=== PATIENT | female | born 1950 | race Caucasian/White ===

== ENCOUNTER → 2017-05-09 | Outpatient (CLI) | payer MEDICARE, OTHER ==
[~2017-05-09] MED LIST: ANTI-DIARRHEAL2 M1 PO; CELEXA20 MG PO; CYCLOBENZAPRINE5 MG PO; DITROPAN5 MG PO; GABAPENTIN100 M1 PO; LORAZEPAM1 MG PO; OMEPRAZOLE40 MG PO; ZOLOFT PO
--- NOTE | ~2017-05-09 | MY29 ---
[facility] A Service of [facility] & [facility] RADIOLOGY TEXT RESULTS PATIENT: JUANCARLOS KNAPP LOCATION: [facility] : 48 UNIT #: [id number] AGE: [address]: Rai Poe MD SEX: F ORDER DR: [id number] [facility]. [place], [place] [address] [id number] O MR#: [id number] Acc #: [id number] NAME: JUANCARLOS KNAPP. : 1950 SEX: F STUDY DATE/TIME: 05/09/2017 14:44 UNIT: [facility] ROOM: STUDY DESCRIPTION: [facility] SCREENING W/ CAD BILAT Attending Physician: Rai Poe Jr., M.D. Referring Physician: Rai Poe Jr., M.D. Ordering Physician: Rai Poe Jr., M.D. Primary Care Physician: Rai Poe Jr., M.D. MEDICAL IMAGING REPORT This report is preliminary unless electronic signature is present REVISED REPORT SEE ADDENDUM EXAM Bilateral digital screening mammogram with CAD. DATE 05/09/2017 HISTORY Family history of breast cancer in mother at the age of 52. No personal history of breast cancer or current complaints. COMPARISON No previous examination at this institution for comparison. The patient states that she has had previous mammograms performed at doctor's office and mobile labs and other hospital's, exact location and dates of which are not submitted at the time this interpretation. FINDINGS CC and MLO views were obtained of each breast utilizing digital technique and reviewed with an FDA-approved CAD device. Scattered fibroglandular densities are present bilaterally, greatest in the upper outer right breast. No focal suspicious nodule, architectural distortion, or clustered microcalcification is seen. IMPRESSION BIRADS 0. Outside imaging comparison required. There are no features suspicious for malignancy on today's screening mammogram. An addendum will be placed upon this report with any additional findings and recommendations at time of comparison with outside study. Patients over the age of 40 are entered into a reminder system with target [facility] A Service of [facility] & [facility] RADIOLOGY TEXT RESULTS PATIENT: [facility]UANCARLOS KNAPP [id number] [birth year] UNIT #: [id number] AGE: [address]: Rai Poe MD SEX: F ORDER DR: due date for the next mammogram. A result letter will also be sent to the patient. BIRADS: 0 Incomplete; need additional imaging evaluation and/or prior mammograms for comparison. Dictated by... Jenny Rayo M.D. THIS IS AN ELECTRONICALLY VERIFIED REPORT Jenny Rayo M.D. at 05/10/2017 7:12 AM [facility]/omero TD: 05/09/2017 16:13 JOB #: [id number] ADDENDUM A comparison mammogram dated 04/03/2014 from the [facility] has now become available for comparison purposes. When compared to the prior study, there has been no significant interval change. No new dominant nodule mass or suspicious cluster of microcalcifications. IMPRESSION Negative screening mammogram. When compared with the comparison study of 2013, there has been no significant interval change. A screening mammogram in 1 year is recommended. BIRADS: 1 Negative Dictated by... Shahab Nickerson M.D. THIS IS AN ELECTRONICALLY VERIFIED REPORT Shahab Nickerson M.D. at 07/13/2017 5:20 PM SAÚ[facility]/yudelka TD: 07/12/2017 13:12 JOB #: [id number] CC: Lit/invision Please Delete MEDICAL IMAGING REPORT Page 1 of 1 COPY
--- NOTE | ~2017-05-09 | BD1 ---
[facility] A Service of [facility] & [facility] RADIOLOGY TEXT RESULTS PATIENT: JUANCARLOS KNAPP LOCATION: [facility] : 48 UNIT #: [id number] AGE: [address]: Rai Poe MD SEX: F ORDER DR: [id number] [facility] [address] [facility] [place] [facility]. [place], [place] [address] [id number] O MR#: [id number] Acc #: [id number] NAME: JUANCARLOS KNAPP. : 1950 SEX: F STUDY DATE/TIME: 05/09/2017 14:56 UNIT: [facility] ROOM: STUDY DESCRIPTION: BD Dexa Bone Dens 1+ Site Attending Physician: Rai Poe Jr., M.D. Referring Physician: Rai Poe Jr., M.D. Ordering Physician: Rai Poe Jr., M.D. Primary Care Physician: Rai Poe Jr., M.D. MEDICAL IMAGING REPORT This report is preliminary unless electronic signature is present EXAM DXA scan 05/09/2017 HISTORY Status post menopause with no hormone replacement therapy. Osteopenia. Family history of breast carcinoma in mother. Family history of osteoporosis in mother and grandmother. FINDINGS Bone mineral density in the lumbar spine from L1-L4 is 0.907 g/cm2 which is 1.3 standard deviations below the mean when compared to the young adult reference population which is characteristic of osteopenia. This is 0.7 standard deviations above the mean when compared to the age-matched population. Compared with 03/05/2015, there has been a decrease in bone mineral density in the lumbar spine of 0.3%. Bone mineral density in the left femoral neck was 0.554 g/cm2 which is 2.7 standard deviations below the mean when compared to the young adult reference population which is characteristic of osteoporosis. This is 1 standard deviation below the mean when compared to the age-matched population. Compared with 03/05/2015, there has been an increase in bone mineral density in the left hip of 1.8%. IMPRESSION Bone mineral density in the lumbar spine characteristic of osteopenia and within the left hip characteristic of osteoporosis. Compared with 03/05/2015, there has been a decrease in bone mineral density in the lumbar spine and an increase in bone mineral density in the left hip. Dictated by... Larry Duggan M.D. THIS IS AN ELECTRONICALLY VERIFIED REPORT [facility] A Service of [facility] RADIOLOGY TEXT RESULTS PATIENT: JUANCARLOS KNAPP LOCATION: [facility] : 48 UNIT #: [id number] AGE: [address]: Rai Poe MD SEX: F ORDER DR: Larry Duggan M.D. at 05/10/2017 8:02 AM LILLIAN/jeronimo TD: 05/09/2017 16:09 JOB #: [id number] MEDICAL IMAGING REPORT Page 1 of 1 COPY
== END | disposition home or self-care (01) ==
LOC: CWCC 14:31
DX: Z12.31 Encounter for screening mammogram for malignant neoplasm of breast (principal); Z78.0 Asymptomatic menopausal state; Z80.3 Family history of malignant neoplasm of breast; R92.8 Other abnormal and inconclusive findings on diagnostic imaging of breast; M85.88 Other specified disorders of bone density and structure, other site; M81.0 Age-related osteoporosis without current pathological fracture
CPT/HCPCS: 77080; G0202